=== PATIENT | male | born 2000 | race African-American/Black ===

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

== ENCOUNTER 2024-11-17 16:43 | Emergency (ER) | payer OTHER, SELFPAY ==
[2024-11-17 16:50] VITALS: BP 135/64; PULSE 104; RESP 16; TEMP 36.8; O2SAT 96; BMI 37.3
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
--- OUTSIDE RECORDS SUMMARY | 2024-11-17 19:48 | XMS_ITS | Encounter Summary ---
Author Organization [employer] Address [address] [place] [address] Care Team Providers Care Patrol Lady Name Role Phone Unavailable Primary Care Provider Unavailabl e Reason for Visit * Reason Onset Date Comments Chart Prep 11/16/2024 Encounter Details Date Type Department Care Team ([facility] st Contact Info) Description 11/16/2024 Telephone [facility] MEDICINE [address] [place], [place] [phone] Araceli Gonsalez MD [address] [place], [place] [phone] Chart Prep Social History Tobacco Use Types Packs/Day Years Used Date Smoking Tobacco: Never Assessed Housing Stability Answer Date Recorded What is your housing situation today? I have rubens baez 11/09/[address] you li ve. Do you have problems with any of the following? None of the above 11/09/2024 Food Insecurity Answer Date Recorded Within the past 12 months, y ou worried that your food would run out before you got money to buy more: Never True 11/09/2024 Within the past 12 months,th e food you bought just didn't last and you didn't have enough money to get more: Never True 12/2024 Transportation Answer Date Recorded In the past 12 months, has l ack of transportation kept you from medical appts, meetings, work or from getting things needed for daily living? No 11/09/2024 Utilities Answer Date Recorded In the past 12 months, has t he electric, gas, oil or water company threatened to shut off services in your home? No 11/09/2024 Internet Access Answer Date Recorded Internet Access Q1 Yes 11/09/2024 Internet Access Q2 Not on file 11/09/2024 Sex and Gender Information Value Date Recorded Sex Assigned at Male 07/13/2024 12:07 PM EDT Legal Sex Male 12:04 PM EDT Gender Identity Male 07/13/2024 12:07 PM EDT Sexual Orientation Don't know 07/13/2024 12 :07 PM EDT documented as of this encounter Miscellaneous Notes * Telephone Encounter - Shaniqua Gomez MA - 11/16/2024 10:57 AM EDT Chart Prep Labs: not applicable Images: not applicable Referrals: not applicable Vaccines due: Covid, Flu, Tdap, Hep B, MCV4, and HPV Screenings: STI Screening, HIV Screening, Hepatitis C Screening Overdue care gaps: SBIRT, PHQ-9, DENISE-7, and Disability screen documented in this encounter Plan of Treatment Not on file documented as of this encounter Visit Diagnoses Not on filedocumented in this encounter
--- OUTSIDE RECORDS SUMMARY | 2024-11-17 19:48 | XMS_ITS | Encounter Summary ---
Author Organization [employer] Address [address] [place] [address] Care Team Providers Care Port Captain Name Role Phone Unavailable Primary Care Provider Unavailabl e Encounter Details Date Type Department Care Team (Latest Contact Info) Description 11/17/2024 Travel Social History Tobacco Use Types Packs/Day Years [...] PM EDT documented as of this encounter Plan of Treatment Not on file documented as of this encounter Visit Diagnoses Not on filedocumented in this encounter
--- OUTSIDE RECORDS SUMMARY | 2024-11-17 19:48 | XMS_ITS | Clinical Summary ---
Author Organization [facility] Address [address] [place] [address] Care Team Providers Care Trumpet Teacher Name Role Phone Unavailable Primary Care Provider Unavailabl e Encounters Date Type Department Care Team Description 11/17/2024 Travel 11/16/[address] [phone] Araceli Gonsalez MD Insurance 11/16/[address] [phone] Araceli Gonsalez MD Chart Prep 11/09/2024 Patient Outreach [address] [phone] Araceli Gonsalez MD Pre-visit Planning (SDOH screening negative and tobacco screening negative) 08/28/[address] [phone] Jim Contreras MD New Patient appt from Last 3 Months Social History Tobacco Use Types Packs/Day Years Used Date Smoking Tobacco: Never Assessed Housing Stability Answer Date Recorded What is your housing situation today? I have rubens sing 11/09/[address] you li [...] Don't know 07/13/2024 12 :07 PM EDT Plan of Treatment Health Maintenance Due Date Last Done Comments Chlamydia and Gonorrhea Screening 2002 Depression Screening 2002 HIV Screening 2002 Disability Screening 2002 Alcohol/Substance Use Screening 2014 Tobacco Screening 2014 Family Planning (PISQ) 2017 HPV Vaccines (1 - Male 3-dos e series) 2017 Meningococcal B Vaccine (1 o f 2 - Standard) 2018 Hepatitis C Screening 2020 DTaP/Tdap/Td Vaccines (1 - Tdap) 2021 Hepatitis B Vaccines (1 of 3 - 19+ 3-dose series) 2021 COVID-19 Vaccine (1 - 2023-2 5 season) 2024 Influenza Vaccine (#1) 2024 SDOH Screening 11/09/2025 11/09/2024 Zoster Vaccines (1 of 2) 2052 RSV Patients and Pa tients Aged 60 years or older (1 - 1-dose 75+ series) 2077 HIB Vaccines Aged Out No longer eligi ble based on patient's age to complete this topic Hepatitis A Vaccines Aged Out No long er eligible based on patient's age to complete this topic IPV Vaccines Aged Out No longer eligi ble based on patient's age to complete this topic Meningococcal Vaccine Aged Out No jose manuel lucas eligible based on patient's age to complete this topic Pneumococcal Vaccine: Pediat rics (0 to 5 Years) and At-Risk Patients (6 to 49) Years Aged Out No longer eligi ble based on patient's age to complete this topic RSV under 20 months Aged Out No longe r eligible based on patient's age to complete this topic Rotavirus Vaccines Aged Out No longer eligible based on patient's age to complete this topic Insurance [email or web address]
--- OUTSIDE RECORDS SUMMARY | 2024-11-17 19:48 | XMS_ITS | Encounter Summary ---
Author Organization [employer] Address [address] [place] [address] Care Team Providers Care Business Continuity Manager Name Role Phone Unavailable Primary Care Provider Unavailabl e Reason for Visit * Reason Onset Date Comments Insurance 11/16/2024 Encounter Details Date Type Department Care Team (Late st Contact Info) Description 11/16/2024 Telephone [facility] MEDICINE [address] [place], [place] [phone] Araceli Gonsalez MD [address] [place], [place] [phone] Insurance Social History Tobacco Use Types Packs/Day Years [...] encounter Miscellaneous Notes * Telephone Encounter - Airam Blank - 11/16/2024 3:48 PM EDT Called Patient, advised insurance on file [place] [employer] is not something [facility] is contracted with. Patient no sure what insurance he has because it is with his mothers insurance. Patient was advised to bring insurance card in and come in early for FD to review. If insurance is not accepted then Patient will be directed to insurance enrollment for additional help. Patient agreed and understood. documented in this encounter Plan of Treatment Not on file documented as of this encounter Visit Diagnoses Not on filedocumented in this encounter
--- OUTSIDE RECORDS SUMMARY | 2024-11-17 19:48 | XMS_ITS | Clinical Summary ---
Author Organization [employer] [facility] Address [address] [place] [address] Care Team Providers Care Air Conditioning Coil Assembler Name Role Phone Unavailable Primary Care Provider Unavailabl e Social History Tobacco Use Types Packs/Day Years Used Date Smoking Tobacco: Never Assessed Sex and Gender Information Value Date Recorded Sex Assigned at Not on file Legal Sex Male 10:54 PM EST Gender Identity Not on file Sexual Orientation Not on file Plan of Treatment Health Maintenance Due Date Last Done Comments HPV Vaccines (1 - Male 3-dos e series) 2017 Meningococcal B Vaccine (1 o f 2 - Standard) 2018 DTaP,Tdap,and Td Vaccines (1 - Tdap) 2021 Hepatitis B Vaccines (1 of 3 - 19+ 3-dose series) 2021 Depression Screening 03/01/2024 COVID-19 Vaccine (1 - 2023-2 5 season) 2024 Influenza Vaccine (#1) 2024 RSV Immunization Adult Patie nts (1 - 1-dose 75+ series) 2077 HIB Vaccines Aged Out No longer eligi ble based on patient's age to complete this topic Hepatitis A Vaccines Aged Out No long er eligible based on patient's age to complete this topic IPV Vaccines Aged Out No longer eligi ble based on patient's age to complete this topic MMR Vaccines Aged Out No longer eligi ble based on patient's age to complete this topic Meningococcal ACWY Vaccine Aged Out N o longer eligible based on patient's age to complete this topic Pneumococcal Vaccine: Pediat rics (0 to 5 Years) and At-Risk Patients (6 to 49 Years) Aged Out No longer eligible b ased on patient's age to complete this topic RSV Immunization Patients Un gen 20 months Aged Out No longer eligible b ased on patient's age to complete this topic Varicella Vaccines Aged Out No longer eligible based on patient's age to complete this topic
[2024-11-17 20:12] LABS: Appearance Urine Clear; Glucose Urine UA Negative (Negative); PH 6.0 (5.0-9.0); Specific Gravity - Urine >= 1.030 (1.005-1.025)
[2024-11-17 21:40] LABS: CT PCR Urine NOT DETECTED (Not Detect.); NG PCR Urine NOT DETECTED (Not Detect.)
[2024-11-17 22:07] VITALS: BP 116/81; PULSE 87; TEMP 36.8; O2SAT 96
[2024-11-17 22:32] VITALS: BP 116/81; PULSE 87; RESP 16; TEMP 36.8; O2SAT 96
== END 2024-11-17 22:37 | disposition home or self-care (01) ==
PROVIDERS: Physician Assistant; Physician Assistant Medical; Emergency Provider Emergency Medicine Emergency Medical Services
DX: N48.89 Other specified disorders of penis (principal); Z79.899 Other long term (current) drug therapy; Z20.2 Contact with and (suspected) exposure to infections with a predominantly sexual mode of transmission
CPT/HCPCS: 36415; 81001; 87252; 87255; 87491; 87591; 99283